=== PATIENT | female | born 1965 | race Caucasian/White ===

== ENCOUNTER → 2023-03-19 09:31 | Outpatient (REF) | payer OTHER, SELFPAY | LOC: HWWDC 09:31 | PROVIDERS: ATTENDING PHYSICIAN Obstetrics & Gynecology; FAMILY PHYSICIAN Internal Medicine | DX: Z12.31 Encounter for screening mammogram for malignant neoplasm of breast (principal) | CPT/HCPCS: 77063; 77067 ==

== ENCOUNTER 2024-01-31 17:15 | Emergency (ER) | payer OTHER, SELFPAY ==
[2024-01-31 17:18] VITALS: BP 159/90
--- NOTE | 2024-01-31 18:31 | ED.GENMED ---
History of Present Illness
General
Chief Complaint: Skin Surface Trauma
Source: patient
Exam Limitations: none
Time Seen by Provider: 01/31/24 18:19
History of Present Illness
History of Present Illness:
58-year-old female not anticoagulated presents for evaluation of head injury. She stepped off the curb and fell hitting her forehead. She noted a small laceration to the forehead. She notes ongoing headache. No loss of conscious. She denies
neck pain. No vomiting since then. She also complains slightly of right palm pain.
Past History
Past History
ED Past Medical History: None
ED Past Surgical History: None
Social History
Tobacco: Non-smoker
Alcohol: None
Drug: None
Personal:
Living: with family
Phy Exam
Physical Exam
Physical Exam:
General: Well-appearing female no acute respiratory distress
HEENT: Normocephalic superficial 1 cm horizontally oriented laceration right forehead. This is superficial to an underlying hematoma. Pupils equal round reactive to light TMs are normal
Musculoskeletal exam: Cervical spine is nontender. She is slightly tender over the thenar eminence of the right hand but has no deformity and full range of motion.
Neurologic exam: Alert normal gait conversing appropriately good strength to the upper and lower extremities
Course
Orders/Labs/Results
Orders:
Orders
01/31/24 18:30
CT Head W/o Iv Contrast Urgent
Comment:
Reason For Exam: fall, head injury
Vital Signs
Initial and Last Documented VS:
Initial Vital Signs
Temp Pulse Resp BP Pulse Ox
98.5 F 88 16 159/90 98
01/31/24 17:18 01/31/24 17:18 01/31/24 17:18 01/31/24 17:18 01/31/24 17:18
Last Documented Vital Signs
Temp Pulse Resp BP Pulse Ox
98.5 F 88 16 159/90 98
01/31/24 17:18 01/31/24 17:18 01/31/24 17:18 01/31/24 17:18 01/31/24 17:18
MDM/Problems Addressed
Differential Diagnosis Includes:
Fall with head injury. Superficial laceration cleansed with saline and held in approximation with skin adhesive. Patient concerned about internal injury to her head. Will order CT of head to evaluate for skull or intracranial hemorrhage.
Discussed options for her hand. This is likely contusion offered x-rays however she declined which I think is reasonable.
*Critical Care Note
Total Time (30-74mins, 75-104mins- exclusive of procedures): Not Applicable
Update Note
Update Note:
Patient fell hitting head CT head was reviewed and is negative. Reassured. Recommended local wound care. Stable for discharge
ED Attending Note
-
Portions of this chart may have been created with voice recognition software.� Occasional wrong word or��sound alike� substitutions may have occurred due to the inherent limitations of voice recognition software.
Discharge Plan
Departure
Patient Disposition: Home (Routine Discharge)
Date of Disposition: 01/31/24
Time of Disposition: 19:45
Patient with high blood pressure during this ER visit?: No
Discharge Problem:
Laceration, Hematoma
Instructions: Laceration Repair With Glue (DC)
Prescriptions:
No Action
hydrocodone-acetaminophen 1 TABLET tablet
1 tab PO Q4HPRN PRN (Reason: severe pain) Qty: 20 0RF
Referrals:
Yon Zaragoza DO [Family Provider] -
Activity Restrictions/Additional Instructions:
Rest. You may use ibuprofen or Tylenol for pain. The glue will dissolve on its own. Return here if needed otherwise follow-up with your doctor
Interventions
Interventions:
*Risk Screen - Suicide Last Done: 01/31/24 17:18
*General Assessment Last Done: 01/31/24 17:18
*Neglect/Abuse Screening Last Done: 01/31/24 17:18
*ED COVID-19 Vaccine History Last Done: 01/31/24 17:18
Discharge Date and Time
Print Language: FAROESE
== END 2024-01-31 19:53 | disposition home or self-care (01) ==
LOC: EMR 17:15
PROVIDERS: EMERGENCY PHYSICIAN Emergency Medicine; FAMILY PHYSICIAN Internal Medicine
DX: S01.81XA Laceration without foreign body of other part of head, initial encounter (principal); W10.1XXA Fall (on)(from) sidewalk curb, initial encounter
CPT/HCPCS: 12011; 99284; 70450

== ENCOUNTER 2024-04-09 19:14 | Emergency (ER) | payer OTHER, SELFPAY ==
[2024-04-09 19:21] VITALS: BP 182/103
[2024-04-09 21:43] VITALS: BP 151/76
--- NOTE | 2024-04-09 21:45 | ED.GENMED ---
History of Present Illness
General
Chief Complaint: DVT/Possible Blood Clot
Source: patient
Exam Limitations: none
Time Seen by Provider: 04/09/24 21:30
Nursing documentation reviewed up to this point in time: agreed with
History of Present Illness
History of Present Illness:
58-year-old female with history as noted presents to the ER for evaluation of left leg pain. Patient reports that she has been driving a longer distance for her work commute�now has to drive up to [place] a few times a week. She also a long drive
to [place] recently. She says that yesterday she woke up and she noticed some pain posterior left thigh and radiates behind the left knee. No clear triggering or relieving factors noted. She says that it does feel mildly numb. She says
that she did not have any trauma or injury. She was concerned that she could have a DVT and came to the ER for assessment. She denies any personal history of DVT/PE. Aside from pain behind the left thigh and knee she denies any other
complaints�no swelling, skin changes or any other symptoms noted.
Past History
Past History
ED Past Medical History: None
ED Past Surgical History: None
Social History
Tobacco: Non-smoker
Alcohol: None
Drug: None
Personal:
Living: with family
Review of Systems
Review of Systems
All Other Systems: ROS reviewed and negative except as documented in HPI and ROS
Constitutional: Denies fever
Respiratory: Denies trouble breathing
Cardiac: Denies chest pain
Musculoskeletal: Reports other (Left leg pain); Denies edema
Skin: Denies rash
Phy Exam
Physical Exam
Physical Exam:
General: Awake, alert, oriented x3; no acute distress
Head: Normocephalic, atraumatic
Eyes: Conjunctiva normal
Throat: Airway intact, handling secretions
Neck: Trachea midline
Lungs: Breathing comfortably no distress
Heart: Regular rate
Neuro: Cranial nerves grossly intact, speech fluid, no gross motor or sensory deficits, ambulatory in the ED
Skin: no rash in area of concern
Extremities: No edema in extremities, equal pulses in all extremities, no calf tenderness; she has no left knee effusion, no joint line tenderness or pain with manipulation of the patella on the left knee
Scores
Heart Failure Risk
Heart Failure Risk Score: Not Applicable
Heart Score for Chest Pain Patients
STEMI patient?: Not applicable
Withdrawal Assessment of Alcohol
Withdrawal Assessment Completed?: Not applicable
Course
Orders/Labs/Results
Orders:
Orders
04/09/24 19:23
US Legs, Left [US Periph Venous LOWER Ext LT] Urgent
Comment:
Reason For Exam: left behind the knee pain
Vital Signs
Initial and Last Documented VS:
Initial Vital Signs
Temp Pulse Resp BP Pulse Ox
36.9 C 68 20 182/103 99
04/09/24 19:21 04/09/24 19:21 04/09/24 19:21 04/09/24 19:21 04/09/24 19:21
Last Documented Vital Signs
Temp Pulse Resp BP Pulse Ox
36.3 C 67 18 151/76 96
04/09/24 21:43 04/09/24 21:43 04/09/24 21:43 04/09/24 21:43 04/09/24 21:43
MDM/Problems Addressed
Differential Diagnosis Includes:
DVT, sciatica, muscle strain, osteoarthritis
MDM/Problems Addressed:
58-year-old female presents for evaluation of left posterior thigh and knee pain started yesterday no trauma increased driving for work. Vitals and exam as above�hypertensive in triage greatly improved by my assessment. Exam is as above. She has
no signs of vascular compromise and no edema. She has no joint effusion in the left knee. She had a DVT study which was negative. I suspect this may be some mild sciatica given her report of some tingling/numbness and pain behind the left thigh
in the setting of recent long car rides. Advised her to take more frequent breaks, stretching, offloading of sciatic nerve. Tylenol and Motrin as needed. Follow-up with PCP. She feels comfortable this plan. All questions answered.
*Radiology
Radiology exam reviewed: radiology read reviewed
*Pulse Oximetry
Patient hypoxic: no
*Critical Care Note
Total Time (30-74mins, 75-104mins- exclusive of procedures): Not Applicable
Data Reviewed
Source: patient and records
ED Attending Note
-
Portions of this chart may have been created with voice recognition software.� Occasional wrong word or��sound alike� substitutions may have occurred due to the inherent limitations of voice recognition software.
Discharge Plan
Departure
Patient Disposition: Home (Routine Discharge)
Date of Disposition: 04/09/24
Time of Disposition: 21:44
Patient with high blood pressure during this ER visit?: Yes
Discharge Problem:
Left leg pain
Instructions: Back Flexion Stretching Exercises, Sciatica ED
Prescriptions:
No Action
hydrocodone-acetaminophen 1 TABLET tablet
1 tab PO Q4HPRN PRN (Reason: severe pain) Qty: 20 0RF
Activity Restrictions/Additional Instructions:
Thank you for visiting the Emergency Department at [facility].
1. Please schedule a follow up appointment as directed. Call first thing tomorrow morning to make an appointment.
2. If indicated, please take your medications as instructed and indicated on discharge paperwork.
3. If any of your symptoms do not improve, or persist, or become more severe within 6-12 hours, please return to the emergency department for further care.
4. Please return to the emergency department if you develop a headache, neck pain/stiffness, fever greater than 100.4F, chest pain, shortness of breath, persistent nausea, vomiting, slurred speech, difficulty walking, numbness/tingling, weakness,
signs of infection or any other symptoms that are worrisome to you.
Please call [phone] if you have any questions.
Interventions
Interventions:
*General Assessment Last Done: 04/09/24 19:21
Discharge Date and Time
Print Language: SYRIAC
== END 2024-04-09 21:51 | disposition home or self-care (01) ==
LOC: EMR 19:14
PROVIDERS: EMERGENCY PHYSICIAN Emergency Medicine; FAMILY PHYSICIAN Internal Medicine
DX: M79.605 Pain in left leg (principal); R03.0 Elevated blood-pressure reading, without diagnosis of hypertension
CPT/HCPCS: 99284; 93971

== ENCOUNTER → 2024-09-25 09:12 | Outpatient (REF) | payer OTHER, SELFPAY | LOC: RAD 09:12 | PROVIDERS: ATTENDING PHYSICIAN Internal Medicine | DX: R91.8 Other nonspecific abnormal finding of lung field (principal) | CPT/HCPCS: 71250 ==

== ENCOUNTER → 2024-12-21 09:44 | Outpatient (REF) | payer OTHER, SELFPAY | LOC: HWRAD 09:44 | PROVIDERS: ATTENDING PHYSICIAN Internal Medicine Critical Care Medicine; FAMILY PHYSICIAN Internal Medicine | DX: R91.8 Other nonspecific abnormal finding of lung field (principal) | CPT/HCPCS: 71250 ==